=== PATIENT | female | born 2005 | race Two or more races ===

== ENCOUNTER 2025-04-23 12:37 | Emergency (ER) | payer BC ==
[~2025-04-23] VITALS: Ht 154.9 cm; Wt 57.2 kg
[2025-04-23 12:50] VITALS: TEMP 98
[2025-04-23 14:41] LABS: APPEARANCE,URINE CLEAR (CLEAR); BLOOD, URINE NEGATIVE Ery/uL (NEGATIVE); LEUKOCYTE ESTERASE ,URINE NEGATIVE (NEGATIVE); NITRITE, URINE NEGATIVE (NEGATIVE); UGLUCOSE NEGATIVE (NEGATIVE)
[2025-04-23 15:05] LABS: ADD URINE CULTURE NO; SQUAMOUS EPITHELIAL CELL,UR 0-2 /HPF (None Seen)
[2025-04-23] MEDS ORDERED: ACETAMINOPHEN 325 MG TABLET ONE (15:32)
[2025-04-23] MEDS: ACETAMINOPHEN 325 MG TABLET PO ONE (15:36)
[2025-04-23 16:06] LABS: PREGNANCY TEST URINE QUAL NEGATIVE (NEGATIVE)
[2025-04-23 18:00] VITALS: BP 110/66; O2SAT 99
== END 2025-04-23 18:00 | disposition home or self-care (01) ==
LOC: ER 12:37
DX: S60.412A Abrasion of right middle finger, initial encounter (principal); S89.81XA Other specified injuries of right lower leg, initial encounter; R51.9 Headache, unspecified; R07.9 Chest pain, unspecified; V43.52XA Car driver injured in collision with other type car in traffic accident, initial encounter; Y93.89 Activity, other specified; Y92.488 Other paved roadways as the place of occurrence of the external cause; Y99.8 Other external cause status
CPT/HCPCS: 70450-TC; 71045-TC; 72100-TC; 73560-TC; 81001; 84703-TC

== ENCOUNTER 2025-05-09 13:21 | Emergency (ER) | payer BC ==
[~2025-05-09] VITALS: Ht 154.9 cm; Wt 56.2 kg
[2025-05-09 14:10] VITALS: TEMP 98.4
[2025-05-09] MEDS ORDERED: PROCHLORPERAZINE EDISYLATE 10 MG/2 ML VIAL ONE (14:40)
[2025-05-09] MEDS: PROCHLORPERAZINE EDISYLATE 10 MG/2 ML VIAL IM ONE (14:43)
[2025-05-09] MEDS ORDERED: IBUP-1490 PO (14:47)
[2025-05-09] MEDS ORDERED: ONDA4TAB5 PO (14:47)
[2025-05-09 15:22] VITALS: BP 110/75; O2SAT 100
== END 2025-05-09 15:20 | disposition home or self-care (01) ==
LOC: ER 13:24
DX: R51.9 Headache, unspecified (principal); R42 Dizziness and giddiness; R11.0 Nausea
CPT/HCPCS: 99283; 96372; J0780